=== PATIENT | male | born 1960 | race African-American/Black ===

== ENCOUNTER 2021-06-24 20:16 | Emergency (ER) | payer MEDICAID, OTHER ==
[~2021-06-24] VITALS: Ht 175.3 cm; Wt 65.0 kg
--- NOTE | 2021-06-24 20:30 | NUR ---
ALL ROOM MONITORING IN PLACE. NEURO EXAM WITH ERP APPEARS TO BE WNL FOR PT. PT FOLLOWS COMMANDS BUT UNABLE TO ANSWER ALL QUESTIONS. ORIENTED TO PERSON AND AT THIS TIME. CALL LIGHT WITHIN REACH.
--- NOTE | 2021-06-24 21:05 | NUR ---
REPORT TO LIT, TRANSFER OF CARE AT THIS TIME.
--- NOTE | 2021-06-24 21:08 | NUR ---
REPORT FROM CARA AGUILAR
--- NOTE | 2021-06-24 22:09 | NUR ---
No answer from [place] ([phone]), no voicemail set up.
--- NOTE | 2021-06-24 22:51 | NUR ---
no answer from [facility]
--- NOTE | 2021-06-24 23:06 | NUR ---
phone # found in chart, . Voicemail left
--- NOTE | 2021-06-24 23:25 | NUR ---
TP RN: CALLED TO [facility] AGAIN([phone]). NO ANSWER.
--- NOTE | 2021-06-24 23:53 | NUR ---
TP RN: CALLED BOTH NUMBERS TO [facility] AND [facility] AGAIN. UNABLE TO GET AN ANSWER.
--- NOTE | 2021-06-25 00:20 | NUR ---
TP RN: PD WAS CONTACTED FOR WELLNESS CHECK WE HAVE BEEN UNABLE TO REACH ANY STAFF AT [facility].
--- NOTE | 2021-06-25 00:40 | NUR ---
MITCH FROM [facility] CALLED, STATES PATIENT IS NOT ON HER LIST AND STATES "THE PHONE HASN'T BEEN RINGING LATELY". STATES SHE WILL CHECK OTHER PLACE AND CALL BACK, GAVE CALL BACK NUMBER OF [phone].
--- NOTE | 2021-06-25 00:48 | NUR ---
BROCK FROM [facility] CALLED BACK, STATES "THE PHONE HAS BEEN ON NIGHT MODE". VERBALIZES UNDERSTANDING OF PT BEING DC'D. WILL SET UP RIDE WITH ALBER.
--- NOTE | 2021-06-25 01:29 | NUR ---
TP RN: CALLED Tanika FOR PT. RIDE BACK TO [facility]. THEY SAID THEY SPOKE WITH BUNNY AT [facility] WHO STATED [facility] WOULD BE AT [phone].
--- NOTE | 2021-06-25 01:30 | NUR ---
EPS called at . Voicemail left since time is after business hours. 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
--- NOTE | 2021-06-25 02:09 | NUR ---
pt relaxing in bed, when asked if he is doing okay pt replies "I'm fine".
--- NOTE | 2021-06-25 03:02 | NUR ---
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
--- NOTE | 2021-06-25 03:08 | NUR ---
Report to Dario PARKER pending [facility] pickle maker.
--- NOTE | 2021-06-25 03:44 | NUR ---
[facility] here to take patient back to [facility].
[2021-06-25 03:45] VITALS: BP 102/72
--- NOTE | 2021-06-25 16:08 | NUR ---
EPS CALLED AGAIN TO GIVE UPDATED INFORMATION AT . SPOKE WITH LANEY WHO TOOK INFORMATION.
== END 2021-06-25 03:49 ==
LOC: ED 22:04
DX: M25.511 Pain in right shoulder (principal); Z72.9 Problem related to lifestyle, unspecified; M25.551 Pain in right hip; Z86.73 Personal history of transient ischemic attack (TIA), and cerebral infarction without residual deficits
CPT/HCPCS: 99283

== ENCOUNTER 2021-07-07 11:33 | Emergency (ER) | payer MEDICAID ==
[~2021-07-07] VITALS: Ht 177.8 cm; Wt 70.0 kg
--- NOTE | 2021-07-07 11:53 | NUR ---
CLEVE FROM [facility] FOR REPORTS OF COLD RIGHT ARM, PER EMS UNABLE TO FEEL RADIAL PULSE ON RIGHT ARM. FSBG 117 PER EMS. PT PLACED ON ALL MONITORS, FALL PRECAUTIONS IN PLACE, CALL LIGHT PLACED WITHIN REACH.
--- NOTE | 2021-07-07 12:16 | NUR ---
DR. REA AT BEDSIDE FOR EVAL.
[2021-07-07 12:59] LABS: BASOPHILS % (AUTO) 1 % (0-1); EOSINOPHILS % (AUTO) 1 % (1-7); LYMPHOCYTES % (AUTO) 13 % (22-44); MEAN CORPUSCULAR HEMOGLOBIN 19.3 pg (27.5-34.5); MEAN PLATELET VOLUME 8.5 fL (7.4-10.4); MONOCYTES % (AUTO) 23 % (2-9); NEUTROPHILS % (AUTO) 62 % (42-75); PLATELET COUNT 384 x10^3/uL (130-400); RED BLOOD COUNT 5.28 x10^6/uL (4.38-5.82); RED CELL DISTRIBUTION WIDTH 24.4 % (9.4-14.8)
[2021-07-07 13:05] LABS: INTERNATIONAL NORMALIZED RATIO 1.51 (0.93-1.1); PROTHROMBIN TIME 15.8 Seconds (9.6-11.5)
[2021-07-07 13:06] LABS: ANION GAP 6 mmol/L (5-15); CALCIUM 8.1 mg/dL (8.5-10.1); CHLORIDE 107 mmol/L (98-107); CREATININE 0.98 mg/dL (0.7-1.3)
--- NOTE | 2021-07-07 13:11 | NUR ---
PT SACHINIITJESUS US/, REMAINS ON MONITORS, VSS. CONT TO MONITOR.
[2021-07-07 13:19] LABS: ACANTHOCYTES 1+; ANISOCYTOSIS 2+; HYPOCHROMIA 1+; MICROCYTOSIS 2+; OVALOCYTES 1+; POLYCHROMASIA 1+; TEAR DROPS 1+
[2021-07-07 13:21] LABS: <PLATELET ESTIMATE> ADEQUATE; <PLT MORPHOLOGY> NORMAL PLT MORPH
--- NOTE | 2021-07-07 14:13 | NUR ---
US AT [facility].
--- NOTE | 2021-07-07 15:04 | NUR ---
SPOKE WITH JOYCELYN AGUILAR AT [facility], PT WILL NEED TRANSPORTAION HOME. [phone].
--- NOTE | 2021-07-07 16:01 | NUR ---
PT AWAITING TRANSPORT [facility]IA [facility] BACK TO [facility], SCHEDULED FOR [phone]. PT AWARE OF POC. PT REMAINS ON MONITORS, VSS. CONT TO MONITOR.
--- NOTE | 2021-07-07 17:01 | NUR ---
PT TRANSPORTED BACK TO [facility]. JOYCELYN AGUILAR AWAY, PT TRANSFERING BACK TO FACILITY. PT HAS D/C PAPERWORK UPON D/C, HAS DRY BRIEF.
[2021-07-07 17:03] VITALS: BP 104/61
== END 2021-07-07 17:05 ==
LOC: ED 11:53
DX: M79.601 Pain in right arm (principal); Z79.01 Long term (current) use of anticoagulants; I48.91 Unspecified atrial fibrillation
CPT/HCPCS: 36415; 80048; 85025; 85610; 93005; 93931; 99285